=== PATIENT | male | born 1985 | race Caucasian/White ===

== ENCOUNTER 2018-04-25 19:36 | Emergency (ER) | payer OTHER ==
--- NOTE | 2018-04-25 20:15 | EDPHY ---
H & P Time Seen by Provider: 04/25/18 19:53 HPI/ROS: HPI Right groin pain. 32-year-old male by private vehicle. This patient reports that he developed pain which she describes as a dull ache which came on and dissipated intermittently 1 week ago. Denies any history of trauma. He reports the pain has since migrated up into his right inguinal and lower abdominal area. He reports that it was a little worse today. No gross hematuria. Denies significant testicular pain now. He has not had this pain in the past. Denies fever. ROS: Constitutional: As above, no chills. No weakness. Eyes: No discharge. No changes in vision. ENT: No sore throat. No nasal congestion or rhinorrhea. Respiratory: No cough. No shortness of breath. Cardiac: No chest pain, no palpitations. Gastrointestinal: No abdominal pain, no vomiting, no diarrhea. Genitourinary: No hematuria. No dysuria or increased frequency with urination. No discharge. As above. Musculoskeletal: No back pain. No neck pain. No myalgias or arthralgias. Skin: No rashes. Neurological: No headache. No focal weakness or altered sensation. Past medical history: Denies any significant past medical history. Social history: Nonsmoker. Here by himself. No alcohol. Physical Exam: General Appearance: Alert, no distress. This patient is responding to questions appropriately and in full sentences. This patient appears well- hydrated and well-nourished. Eyes: Pupils equal and round no pallor or injection. No lid edema, erythema or injection. Respiratory: There are no retractions, lungs are clear to auscultation with good air movement bilaterally. Cardiovascular: Regular rate and rhythm. No murmur. Gastrointestinal: Abdomen is soft and nontender, no masses, bowel sounds normal. No focal tenderness at McBurney's point. No Caballero sign. : Normal circumcised penis. No lesions. No discharge. No blood at the penile meatus. Testicles are of normal lie. No masses, erythema, edema or ecchymosis noted. No tenderness on palpation. No clinical evidence of inguinal hernia. Neurological: Motor sensory function is grossly intact. Cranial nerves are normal. Gait is normal. Skin: Warm and dry, no rashes. Musculoskeletal: Neck is supple and nontender. Extremities are symmetrical. All joints range without pain or impingement. Psychiatric: No agitation. No depression. Database: EKG: Imaging: Testicular ultrasound: Negative. No evidence of torsion. No evidence of epididymitis or other abnormality. Results discussed with staff radiologist Dr. Jony Miranda. CT abdomen and pelvis without contrast: The patient spleen appears large. This study is otherwise negative. No evidence of ureterolithiasis, appendicitis or hernia. Results were discussed with staff radiologist Dr. Jony Miranda Procedures: Emergency department course: IV placed. Vital signs reviewed and are normal. The patient does not require any pain medications at this time. Imaging as above ordered. Patient consents. 9:45 p.m., patient re-evaluated. Resting comfortably at this time. Results of his ultrasound, CT scan and diagnostic workup discussed with him. No significant findings. Plan will be to have him follow up with Urology on Friday. I will prescribe high-dose ibuprofen for the next 3 days. He feels comfortable going home at this time and I feel he is safe for discharge. He understands his follow-up return to emergency department precautions were reviewed with him thoroughly. All of his questions were answered. He was discharged from the emergency department in good condition. Differential Diagnosis: The differential diagnosis on this patient includes but is not limited to epididymitis, hernia. Testicular torsion, testicular trauma, STI unlikely. This represents a partial list of diagnoses considered. These considerations are based on history, physical exam, past history, reassessment and diagnostic testing. Smoking Status: Former smoker Constitutional: Initial Vital Signs Temperature (C) 36.8 C 04/25/18 19:38 Heart Rate 65 04/25/18 19:38 Respiratory Rate 18 04/25/18 19:38 Blood Pressure 135/74 H 04/25/18 19:38 O2 Sat (%) 97 04/25/18 19:38 O2 Delivery Mode Room Air Allergies/Adverse Reactions: No Known Allergies Allergy (Unverified 04/25/18 19:41) Home Medications: Medication Instructions Recorded NK [No Known Home Meds] 04/25/18 Medical Decision Making - Diagnostics Imaging Results: Imaging Impressions Abdomen/Pelvis CT 04/25/18 20:07 Impression: 1. There is no evidence of nephrolithiasis or obstructive uropathy. 2. Mild splenomegaly. Correlation with a serum CBC is suggested. 3. Mild constipation. 4. Normal CT appearance of the appendix. 5. Grade 1 anterolisthesis at L5-S1 with bilateral spondylolysis. Attention: This CT examination is specifically designed to evaluate patients who are clinically suspected of having acute obstructive uropathy. This examination does not use radiographic contrast, and as such, provides only a limited evaluation of the abdomen, pelvis, and retroperitoneum. If there is further clinical suspicion for pathological conditions other than obstructive uropathy, a complete CT evaluation of the abdomen and pelvis utilizing intravenous, oral, and rectal contrast should be considered. Findings were discussed with Martín Benavides MD at 20:51, on 04/25/2018. Testicular Ultrasound 04/25/18 20:07 Impression: Normal study. Findings were discussed with Martín Benavides MD at 20:52, on 04/25/2018. - Data Points Laboratory Results: Laboratory Results 04/25/18 21:10 04/25/18 21:10 04/25/18 04/25/18 04/25/18 21:15 21:10 21:10 WBC 6.46 10^3/uL 10^3/uL (3.80-9.50) RBC 4.58 10^6/uL 10^6/uL (4.40-6.38) Hgb 13.7 g/dL g/dL (13.7-17.5) Hct 39.7 % L % (40.0-51.0) MCV 86.7 fL fL (81.5-99.8) MCH 29.9 pg pg (27.9-34.1) MCHC 34.5 g/dL g/dL (32.4-36.7) RDW 12.1 % % (11.5-15.2) Plt Count 209 10^3/uL 10^3/uL (150-400) MPV 10.5 fL fL (8.7-11.7) Neut % (Auto) 55.8 % % (39.3-74.2) Lymph % (Auto) 34.8 % % (15.0-45.0) [place] % (Auto) 9.0 % % (4.5-13.0) Eos % (Auto) 0.0 % L % (0.6-7.6) Baso % (Auto) 0.2 % L % (0.3-1.7) Nucleat RBC Rel Count 0.0 % % (0.0-0.2) Absolute Neuts (auto) 3.61 10^3/uL 10^3/uL (1.70-6.50) Absolute Lymphs (auto) 2.25 10^3/uL 10^3/uL (1.00-3.00) Absolute Monos (auto) 0.58 10^3/uL 10^3/uL (0.30-0.80) Absolute Eos (auto) 0.00 10^3/uL L 10^3/uL (0.03-0.40) Absolute Basos (auto) 0.01 10^3/uL L 10^3/uL (0.02-0.10) Absolute Nucleated RBC 0.00 10^3/uL 10^3/uL (0-0.01) Immature Gran % 0.2 % % (0.0-1.1) Immature Gran # 0.01 10^3/uL 10^3/uL (0.00-0.10) Sodium 145 mEq/L mEq/L (135-145) Potassium 4.0 mEq/L mEq/L (3.3-5.0) Chloride 109 mEq/L mEq/L (97-110) Carbon Dioxide 30 mEq/l mEq/l (22-31) Anion Gap 6 mEq/L L mEq/L (8-16) BUN 25 mg/dL H mg/dL (7-23) Creatinine 0.9 mg/dL mg/dL (0.7-1.3) Estimated GFR > 60 Glucose 81 mg/dL mg/dL (70-100) Calcium 9.6 mg/dL mg/dL (8.5-10.4) Urine Color Urine Appearance Urine pH Ur Specific [place] Urine Protein Urine Ketones Urine Blood Urine Nitrate Urine Bilirubin Urine Urobilinogen Ur Leukocyte Esterase Urine RBC Urine WBC Ur Epithelial Cells Urine Mucus Urine Glucose C.trachomatis RNA (TMA) Pending N.gonorrhoeae RNA (TMA) Pending 04/25/18 19:50 WBC RBC Hgb Hct MCV MCH MCHC RDW Plt Count MPV Neut % (Auto) Lymph % (Auto) [place] % (Auto) Eos % (Auto) Baso % (Auto) Nucleat RBC Rel Count Absolute Neuts (auto) Absolute Lymphs (auto) Absolute Monos (auto) Absolute Eos (auto) Absolute Basos (auto) Absolute Nucleated RBC Immature Gran % Immature Gran # Sodium Potassium Chloride Carbon Dioxide Anion Gap BUN Creatinine Estimated GFR Glucose Calcium Urine Color YELLOW Urine Appearance CLEAR Urine pH 5.0 (5.0-7.5) Ur Specific [place] 1.027 (1.002-1.030) Urine Protein NEGATIVE (NEGATIVE) Urine Ketones NEGATIVE (NEGATIVE) Urine Blood NEGATIVE (NEGATIVE) Urine Nitrate NEGATIVE (NEGATIVE) Urine Bilirubin NEGATIVE (NEGATIVE) Urine Urobilinogen NEGATIVE EU EU (0.2-1.0) Ur Leukocyte Esterase NEGATIVE (NEGATIVE) Urine RBC 0-1 /hpf /hpf (0-3) Urine WBC 0-1 /hpf /hpf (0-3) Ur Epithelial Cells TRACE /lpf /lpf (NONE-1+) Urine Mucus 3+ /lpf H /lpf (NONE-1+) Urine Glucose NEGATIVE (NEGATIVE) C.trachomatis RNA (TMA) N.gonorrhoeae RNA (TMA) Departure - Departure Disposition: Home, Routine, Self-Care Clinical Impression: Right groin pain Condition: Good Instructions: Groin Pain (ED) Additional Instructions: Read and follow provided instructions. Follow-up with Urology as discussed on Friday. Ibuprofen dosin mg every 6 hours with meals for the next 3 days only. Take only as needed for pain. Avoid any activity which worsens your pain. Return to the emergency department for worsening pain, testicular swelling or other serious concerns. Referrals: Ann Marie Lorenz MD [Medical Doctor] - As per Instructions
[2018-04-25 21:23] LABS: PLATELET COUNT 209 10^3/uL (150-400)
[2018-04-25 21:56] VITALS: BP 127/64
[2018-04-27 13:18] LABS: GC AMPLIFICATION GENPROBE NEGATIVE (NEGATIVE)
== END 2018-04-25 21:55 | disposition home or self-care (01) ==
DX: R10.31 Right lower quadrant pain (principal); Z87.891 Personal history of nicotine dependence